=== PATIENT | female | born 1975 | race Two or more races ===

== ENCOUNTER 2020-05-16 18:35 | Emergency (ER) | payer MEDICAID ==
[~2020-05-16] VITALS: Ht 175.3 cm; Wt 85.3 kg
[~2020-05-16 18:35] MED LIST: TRAM50TA2 PO
[2020-05-16 19:39] LABS: Basophils # (auto) 0.1 10 ^3/uL (0-0.2); Basophils % (auto) 0.6 % (0.0-2.0); Eosinophils # (auto) 0.1 10 ^3/uL (0-0.8); Eosinophils % (auto) 0.9 % (0.0-7.0); Hematocrit 42.1 % (36.0-46.0); Hemoglobin 14.6 g/dL (12.2-16.2); Lymphocytes # (auto) 2.6 10 ^3/uL (0.4-5.4); Lymphocytes % (auto) 23.3 % (10.0-50.0); Mean Corpuscular Hemoglobin 30.4 pg (28.0-32.0); Mean Corpuscular Hgb Conc. 34.7 g/dL (32.0-36.0); Mean Corpuscular Volume 87.6 fL (80.0-100.0); Monocytes # (auto) 0.3 10 ^3/uL (0-1.3); Neutrophils # (auto) 8.1 10 ^3/uL (1.6-8.6); Neutrophils % (auto) 72.2 % (37.0-80.0); Nucleated Red Blood Cells % 0.1 %; Platelet Count (auto) 239 10^3/uL (140-450); Red Blood Cells 4.81 10^6/uL (4.0-5.20); Red Cell Distribution Width 13.7 % (11.8-14.3); White Blood Cell 11.2 10^3/uL (4.4-10.8)
[2020-05-16 19:57] LABS: Calcium 8.7 mg/dL (8.5-10.1); Potassium 3.3 mmol/L (3.5-5.1)
[2020-05-16 20:06] LABS: Bilirubin, Total 0.6 mg/dL (0.2-1.0); Total Protein 7.7 g/dL (6.4-8.2)
[2020-05-16 20:15] VITALS: BP 177/96
== END 2020-05-16 20:39 | disposition home or self-care (01) ==
LOC: ER 18:35
DX: R10.13 Epigastric pain (principal); Z98.890 Other specified postprocedural states; Z90.710 Acquired absence of both cervix and uterus; Z87.891 Personal history of nicotine dependence; Z88.6 Allergy status to analgesic agent; Z88.8 Allergy status to other drugs, medicaments and biological substances
CPT/HCPCS: 36415; 74176; 80053; 83690; 85025

== ENCOUNTER 2022-06-19 19:48 | Emergency (ER) | payer MEDICAID ==
[~2022-06-19] VITALS: Ht 175.3 cm; Wt 195.0 kg
[2022-06-19 20:42] LABS: Hematocrit 36.8 % (36.0-46.0); Hemoglobin 12.4 g/dL (12.2-16.2); Mean Corpuscular Hemoglobin 29.8 pg (28.0-32.0); Mean Corpuscular Hgb Conc. 33.7 g/dL (32.0-36.0); Mean Corpuscular Volume 88.4 fL (80.0-100.0); Red Blood Cells 4.17 10^6/uL (4.0-5.20); Red Cell Distribution Width 16.9 % (11.8-14.3); White Blood Cell 5.4 10^3/uL (4.4-10.8)
[2022-06-19 20:47] LABS: Basophils % (manual) 0 (0.0-2.0); Blast Cells 0; Eosinophils % (manual) 0 (0-7); Myelocytes % 0; Promyelocytes % 0
[2022-06-19 20:59] LABS: Albumin 3.8 g/dL (3.4-5.0); BUN/Creatinine Ratio 24.6; Calcium 8.8 mg/dL (8.5-10.1); Potassium 3.8 mmol/L (3.5-5.1)
[2022-06-19 21:01] LABS: Bilirubin, Total 0.6 mg/dL (0.2-1.0); Total Protein 7.2 g/dL (6.4-8.2)
[2022-06-19 21:19] LABS: Band Neutrophils % (manual) 6; Lymphocytes % (manual) 52 (10.0-50.0); Metamyelocytes % 2; Monocytes % (manual) 10 (0-12); Reactive Lymphocytes 3
[2022-06-19 22:13] LABS: Urine Bacteria NONE SEEN /hpf (None Seen); Urine Blood Negative /uL (Negative); Urine Specific Gravity 1.023 (1.001-1.035); Urine WBC 1 /hpf (0 - 5)
[2022-06-19] MEDS ORDERED: IOHEXOL 350 MG/ML 100ML IJ ONE (23:45)
[2022-06-20 05:55] VITALS: BP 128/82
[2022-06-20] MEDS ORDERED: AZITHROMYCIN 250 MG TAB PO ONE (06:15)
[2022-06-20] MEDS ORDERED: ALBUAER3 IN (06:17)
[2022-06-20] MEDS ORDERED: PERCOT PO (06:17)
[2022-06-20] MEDS ORDERED: AZIT250T9 PO (06:17)
== END 2022-06-20 06:58 | disposition home or self-care (01) ==
LOC: ER 19:48
DX: R07.89 Other chest pain (principal); J06.9 Acute upper respiratory infection, unspecified; Z90.710 Acquired absence of both cervix and uterus; Z87.891 Personal history of nicotine dependence; Z79.899 Other long term (current) drug therapy; Z88.6 Allergy status to analgesic agent; Z88.8 Allergy status to other drugs, medicaments and biological substances; Z91.018 Allergy to other foods
CPT/HCPCS: 36415; 71045; 71275; 80053; 81001; 83880; 84484; 85007; 85027; 93005; 99285; Q9967

== ENCOUNTER 2023-02-07 20:20 | Inpatient (IN) | payer MEDICAID ==
[~2023-02-07] VITALS: Ht 175.3 cm; Wt 81.6 kg
[~2023-02-07 20:20] MED LIST changes: +ALBUAER3 IN; +AZIT-43 PO; +PERCOT PO
[2023-02-07] MEDS ORDERED: IBUPROFEN 600 MG TAB PO ONE (20:45)
[2023-02-07 21:13] LABS: Hematocrit 35.5 % (36.0-46.0); Hemoglobin 12.5 g/dL (12.2-16.2); Mean Corpuscular Hemoglobin 31.3 pg (28.0-32.0); Mean Corpuscular Hgb Conc. 35.2 g/dL (32.0-36.0); Mean Corpuscular Volume 89.1 fL (80.0-100.0); Red Blood Cells 3.98 10^6/uL (4.0-5.20); Red Cell Distribution Width 15.4 % (11.8-14.3)
[2023-02-07 21:15] LABS: Albumin 3.6 g/dL (3.4-5.0); Calcium 8.1 mg/dL (8.5-10.1); Potassium 3.1 mmol/L (3.5-5.1)
[2023-02-07 21:19] LABS: BUN/Creatinine Ratio 11.3 (10.0-20.0); Bilirubin, Total 2.1 mg/dL (0.2-1.0); Total Protein 7.3 g/dL (6.4-8.2)
[2023-02-07 21:33] LABS: Basophils % (manual) 0 (0.0-2.0); Blast Cells 0; Eosinophils % (manual) 0 (0-7); Promyelocytes % 0; Reactive Lymphocytes 0
[2023-02-07 22:11] LABS: Band Neutrophils % (manual) 5; Lymphocytes % (manual) 31 (10.0-50.0); Metamyelocytes % 2; Monocytes % (manual) 22 (0-12); Myelocytes % 1
[2023-02-07 22:18] LABS: Urine Bacteria None Seen /hpf (None Seen)
[2023-02-07 22:27] LABS: Urine Amorphous Sediment Few /hpf; Urine Blood Negative /uL (Negative)
[2023-02-07 22:28] LABS: Urine Mucus FEW (None Seen)
[2023-02-07] MEDS ORDERED: LOPERAMIDE 1 mg/7.5ml ORAL soln PO ONE (23:00)
[2023-02-07] MEDS ORDERED: SODIUM CHLORIDE 0.9% 2,000 ML IV ONE (23:00)
[2023-02-08] MEDS ORDERED: LOPERAMIDE HCL 2 MG CAP/TAB ONE (00:10)
[2023-02-08] MEDS ORDERED: LOPERAMIDE HCL 2 MG CAP/TAB PO ONE (00:15)
[2023-02-08] MEDS ORDERED: diphenhdrAMINE HCL 50 MG/1 ML VL IV PRN (03:00)
[2023-02-08] MEDS ORDERED: DOCUSATE SOD 100 MG CAP PO PRN (03:00)
[2023-02-08] MEDS ORDERED: DEXTROSE (50%) 50ML SYRG IV PRN (03:00)
[2023-02-08] MEDS ORDERED: ALBUTEROL SULF 2.5 MG/0.5ML(0.5%) NEB SOLN NEB PRN (03:15)
[2023-02-08] MEDS: SODIUM CHLORIDE 0.9% 1,000 ML IV SCH ×2 (03:24→19:40)
[2023-02-08] MEDS ORDERED: MORPHINE SULFATE INJ 2 MG/ml SYRG IV PRN (03:45)
[2023-02-08] MEDS ORDERED: NITROGLYCERIN 0.4 MG SL TAB SL PRN (03:45)
[2023-02-08] MEDS: IBUPROFEN 600 MG TAB PO PRN ×2 (04:36→12:06)
[2023-02-08 05:04] LABS: Hemoglobin 11.4 g/dL (12.2-16.2); Mean Corpuscular Hemoglobin 31.4 pg (28.0-32.0); Mean Corpuscular Hgb Conc. 34.7 g/dL (32.0-36.0); Mean Corpuscular Volume 90.5 fL (80.0-100.0); Red Blood Cells 3.64 10^6/uL (4.0-5.20); Red Cell Distribution Width 15.4 % (11.8-14.3); White Blood Cell 2.3 10^3/uL (4.4-10.8)
[2023-02-08 05:07] LABS: Basophils % (manual) 0 (0.0-2.0); Blast Cells 0; Eosinophils % (manual) 0 (0-7); Myelocytes % 0; Promyelocytes % 0; Reactive Lymphocytes 0
[2023-02-08 05:18] LABS: BUN/Creatinine Ratio 12.6 (10.0-20.0); Calcium 7.4 mg/dL (8.5-10.1)
[2023-02-08 05:21] LABS: Bilirubin, Total 1.9 mg/dL (0.2-1.0); Total Protein 6.7 g/dL (6.4-8.2)
[2023-02-08] MEDS: InsuLIN REG 1unit/0.01ml Soln (100units/ml) SC SCH ×4 (07:09→21:38)
[2023-02-08] MEDS: ACCU-CHEK COMFORT CURVE STRIP VI SCH ×4 (07:11→21:34)
[2023-02-08 08:43] LABS: Band Neutrophils % (manual) 32; Lymphocytes % (manual) 21 (10.0-50.0); Metamyelocytes % 2; Monocytes % (manual) 11 (0-12)
[2023-02-08] MEDS ORDERED: cefTRIAXone 1GM/50ML D5W 50 ML IV SCH (09:00)
[2023-02-08 10:02] VITALS: BP 82/50
[2023-02-08] MEDS: POTASSIUM CHL 20MEQ/100ML 100 ML IV SCH ×2 (10:17→21:34)
[2023-02-08] MEDS: ENOXAPARIN SOD 40 MG/0.4 ML SYRINGE SC SCH (10:17)
[2023-02-08] MEDS: FAMOTIDINE (10MG/ML) 2ML VL IV SCH ×2 (10:26→21:33)
[2023-02-08 18:30] VITALS: BP 110/58
[2023-02-08 20:00] VITALS: BP 116/61
[2023-02-08 21:55] VITALS: BP 116/61
[2023-02-09] MEDS: metroNIDAZOLE 500MG/100ML 100 ML IV SCH ×2 (00:43→11:17)
[2023-02-09 05:00] VITALS: BP 129/65
[2023-02-09] MEDS: ACCU-CHEK COMFORT CURVE STRIP VI SCH ×4 (06:02→22:18)
[2023-02-09] MEDS: InsuLIN REG 1unit/0.01ml Soln (100units/ml) SC SCH ×4 (06:03→22:18)
[2023-02-09 06:42] LABS: Hematocrit 30.1 % (36.0-46.0); Hemoglobin 10.5 g/dL (12.2-16.2); Mean Corpuscular Hemoglobin 31.5 pg (28.0-32.0); Red Blood Cells 3.34 10^6/uL (4.0-5.20); Red Cell Distribution Width 14.9 % (11.8-14.3); White Blood Cell 3.4 10^3/uL (4.4-10.8)
[2023-02-09 06:47] LABS: Basophils % (manual) 0 (0.0-2.0); Blast Cells 0; Eosinophils % (manual) 0 (0-7); Myelocytes % 0; Promyelocytes % 0
[2023-02-09 07:36] LABS: Calcium 7.2 mg/dL (8.5-10.1)
[2023-02-09 07:39] LABS: BUN/Creatinine Ratio 15.3 (10.0-20.0); Bilirubin, Total 1.3 mg/dL (0.2-1.0); Total Protein 6.5 g/dL (6.4-8.2)
[2023-02-09 07:43] LABS: Potassium 2.9 mmol/L (3.5-5.1)
[2023-02-09 09:08] VITALS: BP 97/56
[2023-02-09] MEDS ORDERED: POTASSIUM CHL 20 Meq TABLET PO ONE (10:30)
[2023-02-09] MEDS ORDERED: SODIUM CHLORIDE 0.9% 1,000 ML IV ONE (11:45)
[2023-02-09] MEDS ORDERED: VANCOMYCIN PER PHARMACY 0 MG IV SCH (11:45)
[2023-02-09] MEDS: FAMOTIDINE (10MG/ML) 2ML VL IV SCH ×2 (12:13→22:14)
[2023-02-09] MEDS: ENOXAPARIN SOD 40 MG/0.4 ML SYRINGE SC SCH (12:13)
[2023-02-09] MEDS: INSULIN LANTUS (GLARGINE) 1 /0.01ml (100units/ml) SC SCH (12:23)
[2023-02-09] MEDS ORDERED: VANCOMYCIN 1GM/250ML 250 ML IV ONE (12:30)
[2023-02-09 12:33] LABS: Reactive Lymphocytes 1
[2023-02-09 12:37] LABS: Band Neutrophils % (manual) 14; Lymphocytes % (manual) 49 (10.0-50.0); Metamyelocytes % 2; Monocytes % (manual) 2 (0-12)
[2023-02-09] MEDS: SODIUM CHLORIDE 0.9% 1,000 ML IV SCH (12:39)
[2023-02-09 13:00] VITALS: BP 99/54
[2023-02-09] MEDS ORDERED: PIPERACILLIN-TAZOB 3.375GM 100 ML IV SCH (14:00)
[2023-02-09] MEDS: HYDROmorphone HCL 2 MG/ML VL/or syr IV PRN (15:45)
[2023-02-09] MEDS: POTASSIUM CHL 20MEQ/100ML 100 ML IV SCH ×2 (16:33→19:22)
[2023-02-09 17:00] VITALS: BP 108/61
[2023-02-09] MEDS ORDERED: POTASSIUM CHL 20MEQ/100ML 100 ML IV ONE (19:18)
[2023-02-09] MEDS: VANCOMYCIN 1GM/250ML 250 ML IV SCH (20:33)
[2023-02-09] MEDS: PIPERACILLIN-TAZOB 3.375GM 100 ML IV SCH (21:47)
[2023-02-09 22:00] VITALS: BP 116/64
[2023-02-09] MEDS ORDERED: LOPERAMIDE HCL 2 MG CAP/TAB PO PRN (23:45)
[2023-02-10] VITALS (7 sets, daily range): BP systolic 105–131; BP diastolic 52–73
[2023-02-10] MEDS: SODIUM CHLORIDE 0.9% 1,000 ML IV SCH ×3 (01:06→16:45)
[2023-02-10] MEDS: PIPERACILLIN-TAZOB 3.375GM 100 ML IV SCH ×3 (04:00→20:45)
[2023-02-10 06:11] LABS: Hematocrit 25.2 % (36.0-46.0); Mean Corpuscular Hemoglobin 31.5 pg (28.0-32.0); Mean Corpuscular Hgb Conc. 35.6 g/dL (32.0-36.0); Mean Corpuscular Volume 88.5 fL (80.0-100.0); Red Blood Cells 2.85 10^6/uL (4.0-5.20); Red Cell Distribution Width 15.2 % (11.8-14.3); White Blood Cell 2.6 10^3/uL (4.4-10.8)
[2023-02-10] MEDS: VANCOMYCIN 1GM/250ML 250 ML IV SCH ×3 (06:21→23:17)
[2023-02-10 06:25] LABS: Basophils % (manual) 0 (0.0-2.0); Blast Cells 0; Myelocytes % 0; Promyelocytes % 0; Reactive Lymphocytes 0
[2023-02-10] MEDS: ACCU-CHEK COMFORT CURVE STRIP VI SCH ×4 (06:30→21:32)
[2023-02-10] MEDS: InsuLIN REG 1unit/0.01ml Soln (100units/ml) SC SCH ×4 (06:33→22:11)
[2023-02-10 07:39] LABS: Calcium 7.4 mg/dL (8.5-10.1)
[2023-02-10 07:41] LABS: BUN/Creatinine Ratio 10.7 (10.0-20.0)
[2023-02-10 07:46] LABS: Potassium 2.8 mmol/L (3.5-5.1)
[2023-02-10 08:14] LABS: Band Neutrophils % (manual) 12; Eosinophils % (manual) 4 (0-7); Lymphocytes % (manual) 30 (10.0-50.0); Metamyelocytes % 2; Monocytes % (manual) 10 (0-12)
[2023-02-10] MEDS ORDERED: POTASSIUM CHLORIDE 60 MEQ, LIDOCAINE 1% (LOCAL ANESTH.) 6 ML in SODIUM CHL 0.9% 500 ML IV ONE (08:30)
[2023-02-10] MEDS ORDERED: POTASSIUM EFFERVESENT TAB 25 MEQ GT ONE (08:30)
[2023-02-10] MEDS ORDERED: LOPERAMIDE HCL 2 MG CAP/TAB PO PRN (08:30)
[2023-02-10] MEDS ORDERED: CALCIUM GLUC 1,000mg/50ml-NS 50 ML IV ONE (08:30)
[2023-02-10] MEDS: POTASSIUM CHL 20 Meq TABLET PO SCH ×2 (09:59→20:34)
[2023-02-10] MEDS: ENOXAPARIN SOD 40 MG/0.4 ML SYRINGE SC SCH (10:00)
[2023-02-10] MEDS: FAMOTIDINE (10MG/ML) 2ML VL IV SCH ×2 (10:00→20:43)
[2023-02-10] MEDS: INSULIN LANTUS (GLARGINE) 1 /0.01ml (100units/ml) SC SCH (10:07)
[2023-02-10] MEDS: HYDROmorphone HCL 2 MG/ML VL/or syr IV PRN ×2 (12:21→20:44)
[2023-02-11] MEDS: SODIUM CHLORIDE 0.9% 1,000 ML IV SCH ×3 (01:45→21:45)
[2023-02-11] MEDS: PIPERACILLIN-TAZOB 3.375GM 100 ML IV SCH ×3 (03:33→18:39)
[2023-02-11 05:00] VITALS: BP 134/68
[2023-02-11 06:23] LABS: Albumin 2.3 g/dL (3.4-5.0); Potassium 3.3 mmol/L (3.5-5.1)
[2023-02-11 06:28] LABS: BUN/Creatinine Ratio 7.4 (10.0-20.0); Bilirubin, Total 0.6 mg/dL (0.2-1.0); Calcium 7.8 mg/dL (8.5-10.1); Total Protein 5.2 g/dL (6.4-8.2)
[2023-02-11] MEDS: InsuLIN REG 1unit/0.01ml Soln (100units/ml) SC SCH ×4 (06:32→22:23)
[2023-02-11] MEDS: ACCU-CHEK COMFORT CURVE STRIP VI SCH ×4 (06:33→22:22)
[2023-02-11 08:30] VITALS: BP 106/72
[2023-02-11] MEDS: VANCOMYCIN 1GM/250ML 250 ML IV SCH ×3 (08:30→23:21)
[2023-02-11 09:00] VITALS: BP 106/72
[2023-02-11] MEDS: FAMOTIDINE (10MG/ML) 2ML VL IV SCH ×2 (10:28→21:25)
[2023-02-11] MEDS: POTASSIUM CHL 20 Meq TABLET PO SCH ×2 (10:28→21:28)
[2023-02-11] MEDS: ENOXAPARIN SOD 40 MG/0.4 ML SYRINGE SC SCH (10:28)
[2023-02-11] MEDS: INSULIN LANTUS (GLARGINE) 1 /0.01ml (100units/ml) SC SCH (10:37)
[2023-02-11] MEDS: HYDROmorphone HCL 2 MG/ML VL/or syr IV PRN ×2 (11:28→21:30)
[2023-02-11] MEDS ORDERED: LOPERAMIDE HCL 2 MG CAP/TAB PO PRN (12:45)
[2023-02-11] MEDS ORDERED: LOPERAMIDE HCL 2 MG CAP/TAB PO ONE (12:45)
[2023-02-11] MEDS: ONDANSETRON HCL 4 MG/2 ML VIAL IV PRN ×2 (12:55→21:30)
[2023-02-11 13:00] VITALS: BP 101/65
[2023-02-11 16:20] VITALS: BP 101/65
[2023-02-12] MEDS: PIPERACILLIN-TAZOB 3.375GM 100 ML IV SCH ×3 (02:54→19:34)
[2023-02-12 05:00] VITALS: BP 93/50
[2023-02-12] MEDS: ACCU-CHEK COMFORT CURVE STRIP VI SCH ×3 (06:12→18:28)
[2023-02-12] MEDS: InsuLIN REG 1unit/0.01ml Soln (100units/ml) SC SCH ×4 (06:15→22:00)
[2023-02-12 06:28] LABS: Potassium 3.6 mmol/L (3.5-5.1)
[2023-02-12 06:35] LABS: Albumin 2.4 g/dL (3.4-5.0); BUN/Creatinine Ratio 5.6 (10.0-20.0); Bilirubin, Total 0.4 mg/dL (0.2-1.0); Calcium 8.1 mg/dL (8.5-10.1); Total Protein 5.4 g/dL (6.4-8.2)
[2023-02-12] MEDS: HYDROmorphone HCL 2 MG/ML VL/or syr IV PRN ×2 (07:10→10:56)
[2023-02-12] MEDS: ONDANSETRON HCL 4 MG/2 ML VIAL IV PRN ×2 (07:11→10:55)
[2023-02-12] MEDS: VANCOMYCIN 1GM/250ML 250 ML IV SCH ×2 (08:19→18:25)
[2023-02-12 08:20] VITALS: BP 99/63
[2023-02-12] MEDS: SODIUM CHLORIDE 0.9% 1,000 ML IV SCH ×2 (08:21→17:45)
[2023-02-12 09:00] VITALS: BP 99/63
[2023-02-12] MEDS: FAMOTIDINE (10MG/ML) 2ML VL IV SCH (10:27)
[2023-02-12] MEDS: ENOXAPARIN SOD 40 MG/0.4 ML SYRINGE SC SCH (10:27)
[2023-02-12] MEDS: CHOLESTYRAMINE 4 GM POWDER GT SCH (10:28)
[2023-02-12] MEDS: POTASSIUM CHL 20 Meq TABLET PO SCH (10:28)
[2023-02-12] MEDS: INSULIN LANTUS (GLARGINE) 1 /0.01ml (100units/ml) SC SCH (10:29)
[2023-02-12 13:00] VITALS: BP 122/62
[2023-02-12 17:12] VITALS: BP 136/64
[2023-02-12 22:00] VITALS: BP 144/67
[2023-02-13] MEDS: ACCU-CHEK COMFORT CURVE STRIP VI SCH ×5 (00:36→23:37)
[2023-02-13] MEDS: FAMOTIDINE (10MG/ML) 2ML VL IV SCH ×3 (00:37→23:14)
[2023-02-13] MEDS: VANCOMYCIN 1GM/250ML 250 ML IV SCH ×3 (00:41→17:05)
[2023-02-13] MEDS: POTASSIUM CHL 20 Meq TABLET PO SCH ×3 (00:47→23:09)
[2023-02-13] MEDS: HYDROmorphone HCL 2 MG/ML VL/or syr IV PRN ×3 (00:48→23:12)
[2023-02-13 05:00] VITALS: BP 144/71
[2023-02-13] MEDS: PIPERACILLIN-TAZOB 3.375GM 100 ML IV SCH ×3 (06:30→18:45)
[2023-02-13] MEDS: SODIUM CHLORIDE 0.9% 1,000 ML IV SCH ×3 (06:31→23:45)
[2023-02-13] MEDS: InsuLIN REG 1unit/0.01ml Soln (100units/ml) SC SCH ×4 (07:00→23:07)
[2023-02-13 07:07] LABS: Albumin 2.4 g/dL (3.4-5.0); BUN/Creatinine Ratio 4.7 (10.0-20.0); Calcium 8.6 mg/dL (8.5-10.1)
[2023-02-13 07:12] LABS: Bilirubin, Total 0.5 mg/dL (0.2-1.0); Total Protein 5.7 g/dL (6.4-8.2)
[2023-02-13 08:20] VITALS: BP 146/79
[2023-02-13 09:00] VITALS: BP 146/79
[2023-02-13] MEDS: FLORASTOR (S. BOULARDII) 250 MG CAP PO SCH (10:00)
[2023-02-13] MEDS: ENOXAPARIN SOD 40 MG/0.4 ML SYRINGE SC SCH (10:01)
[2023-02-13] MEDS: INSULIN LANTUS (GLARGINE) 1 /0.01ml (100units/ml) SC SCH (10:08)
[2023-02-13] MEDS: CHOLESTYRAMINE 4 GM POWDER GT SCH (10:35)
[2023-02-13 13:00] VITALS: BP 153/80
[2023-02-13] MEDS: ONDANSETRON HCL 4 MG/2 ML VIAL IV PRN ×2 (15:23→23:14)
[2023-02-13 17:00] VITALS: BP 147/88
[2023-02-13 22:00] VITALS: BP 144/80
[2023-02-14] MEDS: VANCOMYCIN 1GM/250ML 250 ML IV SCH ×3 (01:52→15:54)
[2023-02-14 05:00] VITALS: BP 139/72
[2023-02-14] MEDS: PIPERACILLIN-TAZOB 3.375GM 100 ML IV SCH ×3 (05:34→18:29)
[2023-02-14] MEDS: InsuLIN REG 1unit/0.01ml Soln (100units/ml) SC SCH ×4 (07:00→22:00)
[2023-02-14 07:13] LABS: Albumin 2.7 g/dL (3.4-5.0); Calcium 8.6 mg/dL (8.5-10.1); Potassium 3.8 mmol/L (3.5-5.1)
[2023-02-14 07:16] LABS: Urine Bacteria FEW /hpf (None Seen); Urine Blood Negative /uL (Negative); Urine Specific Gravity 1.006 (1.001-1.035); Urine WBC 1 /hpf (0 - 5)
[2023-02-14 07:17] LABS: BUN/Creatinine Ratio 7.8 (10.0-20.0); Bilirubin, Total 0.6 mg/dL (0.2-1.0)
[2023-02-14] MEDS: ACCU-CHEK COMFORT CURVE STRIP VI SCH ×4 (07:25→22:00)
[2023-02-14 09:00] VITALS: BP 148/68
[2023-02-14] MEDS: ONDANSETRON HCL 4 MG/2 ML VIAL IV PRN (09:04)
[2023-02-14] MEDS: FLORASTOR (S. BOULARDII) 250 MG CAP PO SCH (09:04)
[2023-02-14] MEDS: FAMOTIDINE (10MG/ML) 2ML VL IV SCH (09:04)
[2023-02-14] MEDS: POTASSIUM CHL 20 Meq TABLET PO SCH ×2 (09:05→22:00)
[2023-02-14] MEDS: INSULIN LANTUS (GLARGINE) 1 /0.01ml (100units/ml) SC SCH (09:15)
[2023-02-14] MEDS: ENOXAPARIN SOD 40 MG/0.4 ML SYRINGE SC SCH (09:15)
[2023-02-14] MEDS: HYDROmorphone HCL 2 MG/ML VL/or syr IV PRN (09:22)
[2023-02-14] MEDS: SODIUM CHLORIDE 0.9% 1,000 ML IV SCH ×2 (09:45→23:45)
[2023-02-14] MEDS: CHOLESTYRAMINE 4 GM POWDER GT SCH (11:46)
[2023-02-14 13:00] VITALS: BP 120/68
[2023-02-14 15:45] VITALS: BP 120/85
[2023-02-14 17:00] VITALS: BP 125/72
[2023-02-14 22:00] VITALS: BP 152/58
[2023-02-15] MEDS: FAMOTIDINE (10MG/ML) 2ML VL IV SCH ×3 (00:12→21:57)
[2023-02-15] MEDS: VANCOMYCIN 1GM/250ML 250 ML IV SCH ×3 (00:17→17:08)
[2023-02-15] MEDS: PIPERACILLIN-TAZOB 3.375GM 100 ML IV SCH ×3 (03:04→18:51)
[2023-02-15 05:00] VITALS: BP 139/77
[2023-02-15] MEDS: SODIUM CHLORIDE 0.9% 1,000 ML IV SCH ×2 (05:45→17:08)
[2023-02-15] MEDS: InsuLIN REG 1unit/0.01ml Soln (100units/ml) SC SCH ×4 (06:25→22:00)
[2023-02-15] MEDS: ACCU-CHEK COMFORT CURVE STRIP VI SCH ×4 (07:11→22:11)
[2023-02-15 09:00] VITALS: BP 115/73
[2023-02-15] MEDS: POTASSIUM CHL 20 Meq TABLET PO SCH ×2 (09:55→21:58)
[2023-02-15] MEDS: ENOXAPARIN SOD 40 MG/0.4 ML SYRINGE SC SCH (09:56)
[2023-02-15] MEDS: FLORASTOR (S. BOULARDII) 250 MG CAP PO SCH (09:56)
[2023-02-15] MEDS: INSULIN LANTUS (GLARGINE) 1 /0.01ml (100units/ml) SC SCH (10:11)
[2023-02-15] MEDS: CHOLESTYRAMINE 4 GM POWDER GT SCH (11:25)
[2023-02-15 13:00] VITALS: BP 116/65
[2023-02-15] MEDS ORDERED: CHL4PW GT (14:49)
[2023-02-15] MEDS ORDERED: SACC250C PO (14:49)
[2023-02-15] MEDS ORDERED: DIPH-491 PO (14:49)
[2023-02-15] MEDS ORDERED: ONDA-144 PO (14:49)
[2023-02-15] MEDS ORDERED: METF-370 PO (14:52)
[2023-02-15] MEDS ORDERED: GLIM1TAB PO (14:52)
[2023-02-15 16:45] VITALS: BP 154/85
[2023-02-15] MEDS: HYDROmorphone HCL 2 MG/ML VL/or syr IV PRN (21:56)
[2023-02-15] MEDS: ONDANSETRON HCL 4 MG/2 ML VIAL IV PRN (21:57)
[2023-02-15 22:00] VITALS: BP 155/74
[2023-02-16] MEDS: VANCOMYCIN 1GM/250ML 250 ML IV SCH ×2 (00:30→07:52)
[2023-02-16] MEDS: ONDANSETRON HCL 4 MG/2 ML VIAL IV PRN ×2 (01:49→04:57)
[2023-02-16] MEDS: PIPERACILLIN-TAZOB 3.375GM 100 ML IV SCH ×2 (03:06→11:00)
[2023-02-16] MEDS: SODIUM CHLORIDE 0.9% 1,000 ML IV SCH ×2 (04:16→11:45)
[2023-02-16] MEDS: HYDROmorphone HCL 2 MG/ML VL/or syr IV PRN (04:56)
[2023-02-16 05:00] VITALS: BP 156/76
[2023-02-16] MEDS: InsuLIN REG 1unit/0.01ml Soln (100units/ml) SC SCH ×2 (06:32→11:30)
[2023-02-16] MEDS: ACCU-CHEK COMFORT CURVE STRIP VI SCH ×2 (06:48→11:30)
[2023-02-16 06:56] LABS: Potassium 3.4 mmol/L (3.5-5.1)
[2023-02-16 07:02] LABS: BUN/Creatinine Ratio 9.2 (10.0-20.0); Calcium 8.4 mg/dL (8.5-10.1); Phosphorus 4.2 mg/dL (2.5-4.90)
[2023-02-16 09:00] VITALS: BP 108/70
[2023-02-16] MEDS: FAMOTIDINE (10MG/ML) 2ML VL IV SCH (09:13)
[2023-02-16] MEDS: POTASSIUM CHL 20 Meq TABLET PO SCH (09:13)
[2023-02-16] MEDS: FLORASTOR (S. BOULARDII) 250 MG CAP PO SCH (09:13)
[2023-02-16] MEDS: ENOXAPARIN SOD 40 MG/0.4 ML SYRINGE SC SCH (09:14)
[2023-02-16] MEDS: INSULIN LANTUS (GLARGINE) 1 /0.01ml (100units/ml) SC SCH (09:34)
[2023-02-16] MEDS: CHOLESTYRAMINE 4 GM POWDER GT SCH (11:00)
== END 2023-02-16 14:30 | disposition home or self-care (01) | DRG 382 ==
LOC: ER 20:20 → TELE 02-08 03:35 → TELE-WESTW 02-08 18:00
PROVIDERS: ADMIT Nurse Practitioner Family; ATTEND Internal Medicine
DX: C50.911 Malignant neoplasm of unspecified site of right female breast (principal); D61.810 Antineoplastic chemotherapy induced pancytopenia; N17.9 Acute kidney failure, unspecified; C77.3 Secondary and unspecified malignant neoplasm of axilla and upper limb lymph nodes; E44.0 Moderate protein-calorie malnutrition; C50.912 Malignant neoplasm of unspecified site of left female breast; D64.9 Anemia, unspecified; E86.0 Dehydration; Z20.822 Contact with and (suspected) exposure to COVID-19; T45.1X5A Adverse effect of antineoplastic and immunosuppressive drugs, initial encounter; R00.0 Tachycardia, unspecified; E87.6 Hypokalemia; E11.9 Type 2 diabetes mellitus without complications; R50.81 Fever presenting with conditions classified elsewhere; Z88.5 Allergy status to narcotic agent; Z88.8 Allergy status to other drugs, medicaments and biological substances; Z17.1 Estrogen receptor negative status [ER-]; Z79.84 Long term (current) use of oral hypoglycemic drugs; Z85.3 Personal history of malignant neoplasm of breast; Z87.891 Personal history of nicotine dependence; Z88.6 Allergy status to analgesic agent; Z90.12 Acquired absence of left breast and nipple; Z90.710 Acquired absence of both cervix and uterus; Y92.89 Other specified places as the place of occurrence of the external cause; Z68.26 Body mass index [BMI] 26.0-26.9, adult
CPT/HCPCS: 36415; 71045; 80048; 80053; 80069; 80202; 81001; 82962; 83036; 83605; 83735; 83880; 84484; 85007; 85027; 85048; 85049; 87040; 87045; 87070; 87088; 87426; 87427; 87493; 87804; 93005; 93306; 96361; 96365; G0378; J0696; J1642; J1815; J2001; J2405; J2543; J3480; J3490

== ENCOUNTER 2023-08-21 13:53 | Emergency (ER) | payer MEDICAID ==
[~2023-08-21] VITALS: Ht 175.3 cm; Wt 77.7 kg
[~2023-08-21 13:53] MED LIST changes: -AZIT-43 PO; +CHL4PW GT; +DIPH-491 PO; +GLIM1TAB PO; +METF-370 PO; +ONDA-144 PO; +SACC250C PO
[2023-08-21 14:14] VITALS: BP 139/89; PULSE 113; RESP 16; O2SAT 99
[2023-08-21] MEDS ORDERED: KETOROLAC TROMETH 60MG/2ML VIAL IM ONE (14:15)
== END 2023-08-21 15:27 | disposition left against medical advice (07) ==
LOC: ER 13:53
DX: R10.11 Right upper quadrant pain (principal); R51.9 Headache, unspecified; Z53.21 Procedure and treatment not carried out due to patient leaving prior to being seen by health care provider

== ENCOUNTER 2024-03-14 21:28 | Emergency (ER) | payer MEDICAID ==
[~2024-03-14] VITALS: Ht 175.3 cm; Wt 71.1 kg
[2024-03-14 22:40] VITALS: PULSE 134; RESP 20; O2SAT 97
[2024-03-14 23:00] LABS: Hematocrit 37.7 % (36.0-46.0); Hemoglobin 13.1 g/dL (12.2-16.2); Mean Corpuscular Hemoglobin 33.8 pg (28.0-32.0); Mean Corpuscular Hgb Conc. 34.8 g/dL (32.0-36.0); Mean Corpuscular Volume 97.1 fL (80.0-100.0); Red Blood Cells 3.89 10^6/uL (4.0-5.20); Red Cell Distribution Width 17.3 % (11.8-14.3)
[2024-03-14] MEDS: DexAMETHasone SOD PHOS 10MG/1ML VIAL INJ IV ONE (23:01)
[2024-03-14 23:02] LABS: Chloride 103 mmol/L (98-107); Potassium 2.8 mmol/L (3.5-5.1); Sodium 136 mmol/L (136-145)
[2024-03-14 23:03] LABS: Anion Gap 7 (5-15); Calcium 9.8 mg/dL (8.7-10.4); Carbon Dioxide 26 mmol/L (20-30)
[2024-03-14] MEDS: diphenhdrAMINE HCL 50 MG/1 ML VL IV ONE (23:03)
[2024-03-14] MEDS: HYDROmorphone HCL 2 MG/ML VL/or syr IV ONE (23:03)
[2024-03-14 23:04] LABS: White Blood Cell 1.4 10^3/uL (4.4-10.8)
[2024-03-14 23:06] LABS: Basophils % (manual) 0 (0.0-2.0); Blast Cells 0; Eosinophils % (manual) 0 (0-7); Metamyelocytes % 0; Myelocytes % 0; Promyelocytes % 0; Reactive Lymphocytes 0
[2024-03-14 23:08] LABS: BUN/Creatinine Ratio 11.8 (10.0-20.0); Blood Urea Nitrogen 8 mg/dL (9-23); Glucose 217 mg/dL (74-106)
[2024-03-14] MEDS: SODIUM CHLORIDE 0.9% 500 ML IV ONE (23:14)
[2024-03-14 23:28] LABS: Band Neutrophils % (manual) 2; Lymphocytes % (manual) 56 (10.0-50.0); Monocytes % (manual) 2 (0-12)
[2024-03-14 23:29] LABS: Anisocytosis Slight; Platelet Estimate Decreased
[2024-03-15] MEDS: POTASSIUM CHL 20MEQ/100ML 100 ML IV ONE (00:48)
[2024-03-15] MEDS: POTASSIUM CHL 20 Meq TABLET PO ONE (00:48)
[2024-03-15 02:00] VITALS: BP 118/69; PULSE 100; RESP 18; TEMP 99.2; O2SAT 95
[2024-03-15] MEDS ORDERED: HEPARIN IN NS 1000U/500ML (2UNIT/ML) 500 ML BAG/KIT IV ONE ×2 (02:00→03:30)
== END 2024-03-15 03:44 | disposition home or self-care (01) ==
LOC: ER 21:28
DX: R13.10 Dysphagia, unspecified (principal); E87.6 Hypokalemia; R00.0 Tachycardia, unspecified; C50.919 Malignant neoplasm of unspecified site of unspecified female breast; E11.9 Type 2 diabetes mellitus without complications; Z88.1 Allergy status to other antibiotic agents; Z88.6 Allergy status to analgesic agent; Z88.5 Allergy status to narcotic agent; Z91.018 Allergy to other foods; Z51.11 Encounter for antineoplastic chemotherapy; Z87.891 Personal history of nicotine dependence; Z90.710 Acquired absence of both cervix and uterus; Z79.899 Other long term (current) drug therapy
CPT/HCPCS: 36415; 80048; 85007; 85027; 96361; 96365; 96366; 96375; 99285; J1100; J1170; J1200; J1642; J1644; J3480; J7040; 36556

== ENCOUNTER 2025-01-03 15:22 | Emergency (ER) | payer MEDICAID ==
[~2025-01-03] VITALS: Ht 175.3 cm; Wt 83.4 kg
--- NOTE | 2025-01-03 18:44 | DVH ---
EXAM: CT HEAD WITHOUT CONTRAST INDICATION: mustafa TECHNIQUE: CT of the head without intravenous contrast. Radiation Dose : 1. Head: CT Dose: CTDI volume is 52 mGy. Dose-length product is 1041 mGy*cm The dose indicators for CT are the volume Computed Tomography (CT) Dose Index (CTDIvol) and the Dose Length Product (DLP), and are measured in units of mGy and mGy-cm, respectively. These indicators are not patient dose, but values generated from the CT scanner acquisition factors. The report includes radiation exposure data for exposures received during this examination. COMPARISON: None FINDINGS: There is no evidence of acute intracranial hemorrhage, extra-axial collection, mass effect, midline s hift, herniation or hydrocephalus. The ventricles, sulci and cisterns are age appropriate. The loving-white differentiation is intact. Patchy periventricular and subcortical white matter hypoattenuation is nonspecific but may be related to small vessel ischemic disease. The visualized paranasal sinuses and mastoid air cells are clear. The surrounding soft tissues and osseous structures are unremarkable. IMPRESSION: 1. No acute intracranial abnormality. Radiation optimization: All CT scans at this facility use at least one of these dose optimization willow hniques: automated exposure control mA and/or kV adjustment per patient size (includes targeted exam s where dose is matched to clinical indication) or iterative reconstruction.
--- NOTE | 2025-01-03 18:50 | ED.PDOC ---
History of Present Illness HPI Comments 49 y/o F, with a Hx of breast cancer IV, presents with c/o right-sided head and neck pain, right-eye redness, nausea, and vomiting, today. Patient reports ongoing symptoms following unprovoked onset, last night. She states on being on immunotherapy and ivermectin, currently, and suspects on that being the cause of her symptoms. Patient denies any fever, chills, cough, congestion, vision or speech changes, or other associated symptoms or modifiers at this time. Chief Complaint: Headache Time Seen by MD: 18:00 Primary Care Provider: RADHA LONG Reviewed Notes: Nurses Notes, Medications, Allergies Allergies: Coded Allergies: Aspirin (Verified Allergy, Intermediate, HIVES, 06/13/12) Caffeine (Verified Allergy, Intermediate, HIVES, 06/13/12) Phenacetin (Verified Allergy, Intermediate, HIVES, 06/13/12) Acetaminophen (Verified Allergy, Unknown, 06/20/22) Morphine (Verified Allergy, Unknown, 06/20/22) Home Meds Active Scripts Glimepiride (Amaryl) 1 Mg Tab, 1 TAB PO DAILY, #30 TAB 5 Refills Prov:DAYAMI REYES MD 02/15/23 Metformin Hydrochloride (Metformin Hcl) 500 Mg Tab, 1 TAB PO DAILY, #30 TAB 3 Refills Prov:DAYAMI REYES MD 02/15/23 Ondansetron (Zofran) 4 Mg Tab, 1 TAB PO Q6HR PRN, #30 TAB Prov:DAYAMI REYES MD 02/15/23 Cholestyramine (QUESTRAN POWDER) 4 Gm Pw, 4 GM GT DAILY@11, #30 PKT Prov:DAYAMI REYES MD 02/15/23 Diphenhydramine Hcl (Allermax) 25 Mg Tab, 25 MG PO Q8HPRN PRN, #30 TAB Prov:DAYAMI REYES MD 02/15/23 Yeast (S. Boulardii)(S. Cerevi (Florastor) 250 Mg Cap, 250 MG PO DAILY, #30 CAP Prov:DAYAMI REYES MD 02/15/23 Albuterol Sulfate (VENTOLIN MDI) 90 Mcg Ih, 90 MCG IN Q6HP PRN for 7 Days, #1 MCG Prov:CHACE SALES MD 06/20/22 Oxycodone W/ Acetaminophen (Percocet 5/325MG) 1 Tab Tb, 1 TAB PO BID for 7 Days, #14 TAB Prov:CHACE SALES MD 06/20/22 Tramadol Hcl (Tramadol Hcl) 50 Mg Tab, 100 MG PO Q6HP PRN, #30 MG Prov:ONOFRE BENTLEY N.P. 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 History Family History Family History: Reviewed,noncontributory to illness Social History Smoker: Quit Less Than 1 Year, Cigarettes Alcohol: Denies ETOH Use Drugs: Denies Drug Use Lives In: Home All Other Systems: Reviewed and Negative (Comprehensive review of systems are negative unless otherwise stated in HPI) Physical Exam General Appearance: No Apparent Distress, Normal HEENT: Pharynx Normal, TMs Normal, Other (right conjunctivae injected, pink opaque patches to bilateral upper mouth quadrants; otherwise normal HEENT exam) Neck: Full Range of Motion, Non-Tender, Normal, Normal Inspection Respiratory: Chest Non-Tender, Lungs Clear, No Accessory Muscle Use, No Respiratory Distress, Normal Breath Sounds Cardiovascular: No Edema, No JVD, No Murmur, No Gallop, Normal Peripheral Pulses, Regular Rate/Rhythm Breast Exam: Deferred Gastrointestinal: No Organomegaly, Non Tender, No Pulsatile Mass, Normal Bowel Sounds, Soft Genitalia: Deferred Pelvic: Deferred Rectal: Deferred Extremities: No calf tenderness, Normal capillary refill, Normal inspection, Normal range of motion, Non-tender, No pedal edema Musculoskeletal : Apperance: Normal Neurologic: Alert, reject opener and filler II-XII nml as Tested, No Motor Deficits, Normal Affect, Normal Mood, No Sensory Deficits Cerebellar Function: Normal Reflexes: Normal Skin: Dry, Normal Color, Warm Lymphatic: No Adenopathy Was a procedure done? Was a procedure done?: No Differential Dx Considerations may include: migraines, tension, viral syndrome, URI, UTI, adverse reaction to medication/treatment, among others X-Ray, Labs, Meds, VS Vital Signs Date Time Temp Pulse Resp B/P (MAP) Pulse Ox O2 Delivery O2 Flow Rate FiO2 01/03/25 15:43 99 01/03/25 15:40 98.2 102 18 133/85 (101) 97 98.2 Lab Test 01/03/25 15:39 Range/Units POC Glucose 282 H 70-106 mg/dl X-Ray, Labs, Meds, VS Comment Imaging: X-rays and CT scans were reviewed and interpreted by this provider, imaging shows no fractures and no pathological disease. Pending radiology review. Laboratory: Labs reviewed and interpreted by this provider. No significant abnormalities noted. Patient has prior medical visits reviewed. Med reconciliation performed Vital signs reviewed Time of 1ST Reevaluation: 18:30 Reevaluation 1ST: Unchanged Patient Education/Counseling: Diagnosis, Treatment, Need For Follow Up (Follow up in the emergency department in the next 24-48 hours if symptoms worsen. It was advised to follow up with your primary care doctor in the next 3-4 days for further evaluation.) Family Education/Counseling: No Family Present Departure 1 Departure Time of Disposition: 19:07 Impression: Primary Impression: Dehydration Additional Impressions: Headache Qualified Codes: G44.201 - Tension-type headache, unspecified, intractable Oral candidiasis Disposition: HOME / SELF CARE / HOMELESS Condition: Fair e-Prescriptions Fluconazole (Fluconazole) 200 Mg Tab 1 TAB PO DAILY, #14 TAB Prov: NALDO GARCIA 01/03/25 Discharged With: Self Critical Care Note Critical Care Time?: No Stability Stability form required: No Heart Score Heart Score: Heart Score Response (Comments) Value History N/A 0 EKG N/A 0 Age N/A 0 Risk Factors N/A 0 Troponin N/A 0 Total 0 I personally scribed for NALDO GARCIA ([email or web address]) on 01/03/25 at 18:50. Electronically submitted by Shawn Isaac ([email or web address]). NALDO GARCIA Jan 03, 2025 18:50
[2025-01-03] MEDS ORDERED: FLUC200T50 PO (19:09)
[2025-01-03 23:44] VITALS: BP 116/77; RESP 14; TEMP 98.2; O2SAT 98
[2025-01-03 23:47] VITALS: PULSE 89
--- NOTE | 2025-01-04 10:45 | ECG ---
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
== END 2025-01-03 23:50 | disposition home or self-care (01) ==
LOC: ER 15:22
DX: E86.0 Dehydration (principal); B37.0 Candidal stomatitis; R11.2 Nausea with vomiting, unspecified; E11.9 Type 2 diabetes mellitus without complications; Z85.3 Personal history of malignant neoplasm of breast; Z90.710 Acquired absence of both cervix and uterus; Z87.891 Personal history of nicotine dependence; Z79.84 Long term (current) use of oral hypoglycemic drugs; Z88.6 Allergy status to analgesic agent; Z88.5 Allergy status to narcotic agent
CPT/HCPCS: 70450; 82947; 82962; 93005